=== PATIENT | female | born 1990 | race Caucasian/White ===

== ENCOUNTER 2018-08-19 07:49 | Emergency (ER) | payer BC, OTHER ==
[2018-08-19 08:01] VITALS: BP 146/64
--- NOTE | 2018-08-19 08:17 | UC ---
Upper Extremity HPI - HPI Summary HPI Summary: Pt's L ring finger painful after trying to remove ring. She felt both her hands were a bit swollen and when she tried to remove ; ring got stuck. Has tried icing, floss, oil. Of note pt. . - History of Current Complaint Chief Complaint: UCUpperExtremity Stated Complaint: RING STUCK ON FINGER Time Seen by Provider: 08/19/18 07:54 Hx Obtained From: Patient Hx Last Menstrual Period: pt has a control inplant Onset/Duration: Sudden Onset Pain Intensity: 0 Pain Scale Used: 0-10 Numeric Aggravating Factor(s): Nothing Alleviating Factor(s): Nothing - Allergies/Home Medications Allergies/Adverse Reactions: Allergies Allergy/AdvReac Type Severity Reaction Status Date / Time No Known Allergies Allergy Verified 08/19/18 07:58 Home Medications: Home Medications Vit37/Iron/Folic Acid [Prenata Chewable Tablet] 1 tab PO DAILY [History Confirmed 08/19/18] PMH/Surg Hx/FS Hx/Imm Hx - Additional Past Medical History Additional PMH: Previously Healthy: Yes - Surgical History Surgical History: None - Social History Alcohol Use: None Substance Use Type: None Smoking Status (MU): Never Smoked Tobacco Review of Systems All Other Systems Reviewed And Are Negative: Yes Constitutional: Negative: Fever Skin: Negative: Rash, Bruising Musculoskeletal: Positive: Edema - L ring finger. Negative: Arthralgia, Decreased ROM, Myalgia Physical Exam Triage Information Reviewed: Yes Appearance: Well-Appearing Vital Signs: Initial Vital Signs Temp 97 F 08/19/18 07:56 Pulse 77 08/19/18 07:56 Resp 18 08/19/18 07:56 BP 146/64 08/19/18 07:56 Pulse Ox 100 08/19/18 07:56 Vital Signs Reviewed: Yes Musculoskeletal: Positive: ROM Intact - L hand/fingers., Edema @ - L ring finger , minimally erythematous. Upper Extremity Course/Dx - Course Course Of Treatment: patient first trimester, and tried to remove her L ring finger jewelry but it began to get constricted. Came to urgent care for removal. Removed with device w/ no complications. No bruising on exam and had FROM of L hand/ fingers. Vitals good. - Differential Dx/Diagnosis Differential Diagnosis/HQI/PQRI: Other Provider Diagnosis: Constrictive jewelry of finger Discharge - Sign-Out/Discharge Documenting (check all that apply): Patient Departure All imaging exams completed and their final reports reviewed: No Studies - Discharge Plan Condition: Good Disposition: HOME Patient Education Materials: Swollen Joint (ED) Referrals: No Primary Care Phys,NOPCP [Primary Care Provider] - Additional Instructions: If pain worsens pain worsens to urgent care - Billing Disposition and Condition Condition: GOOD Disposition: Home - Attestation Statements Provider Attestation: I was available for consult. This patient was seen by the [facility]. The patient was not presented to , seen by or examined by me Arun Alvarado MD
== END 2018-08-19 08:32 | disposition home or self-care (01) ==
LOC: UCEAST 07:49
DX: S60.455A Superficial foreign body of left ring finger, initial encounter (principal); X58.XXXA Exposure to other specified factors, initial encounter; Y92.9 Unspecified place or not applicable
CPT/HCPCS: 99212; G0463